=== PATIENT | female | born 1940 | race Caucasian/White ===

== ENCOUNTER 2016-12-14 08:58 | Inpatient (IN) | payer OTHER, BC ==
[2016-12-14] MEDS ORDERED: NITROGLYCERIN SUBLINGUAL 1/150 0.4 MG TAB SL PRN (09:05)
[2016-12-14] MEDS ORDERED: ASPIRIN 81 MG CHEWABLE TABLETS PO ONE (09:05)
[2016-12-14] MEDS ORDERED: METOPROLOL TARTRATE 25 MG TABLET (FP) PO ONE (09:07)
--- NOTE | 2016-12-14 09:08 | PDOC ---
History of Present Illness - General Chief Complaint: Chest Pain Stated Complaint: chest pain Time Seen by Provider: 12/14/16 09:02 - History of Present Illness Initial Comments: 12/14/16 09:38 76 yo female with complicated PMH of HTN, Hypothyroid, HLD, SLE, Anemia, Lower GI Bleed, Ischemic Collitis, GERD, CVA with Right Sided Residual Weakness, wearing a leg brace and using a cane who presents with chest pain and dyspnea that has been present since she woke up at 5am. Her chest pain radiates down her left arm. Her inital EKG in the department shows NSR, Rate of 71, LVH by voltage with normal intervals. There are no EKG changes to suggest ischemia or infarct. No old EKG was available for comparison. She was given aspirin, nitro and a beta-cheryle initially. This made her feel 100% better. Past History - Past Medical History Allergies/Adverse Reactions: Allergies Allergy/AdvReac Type Severity Reaction Status Date / Time ciprofloxacin [From Cipro] Allergy Unknown Verified 12/14/16 09:46 ciprofloxacin HCl Allergy Unknown Verified 12/14/16 09:46 [From Cipro] levofloxacin [From Levaquin] Allergy Unknown Verified 12/14/16 09:46 Quinolones Allergy Unknown Verified 12/14/16 09:46 Sulfa (Sulfonamide Allergy Unknown Verified 12/14/16 09:46 Antibiotics) [Sulfa(Sulfonamide Antibiotics)] Tetracyclines Allergy Unknown Verified 12/14/16 09:46 metronidazole AdvReac Difficulty Verified 12/14/16 09:46 Breathing PLASTICS Allergy Uncoded 12/14/16 09:46 Home Medications: Ambulatory Orders Aspirin [ASA -] 81 mg PO DAILY 12/14/16 Dantrolene Sodium [Dantrium -] 25 mg PO BID 12/14/16 Docusate Sodium [Stool Softener] 100 mg PO DAILY 12/14/16 Levothyroxine [Synthroid -] 75 mcg PO DAILY 12/14/16 Montelukast Na [Singulair -] 10 mg PO HS 12/14/16 Nifedipine [Nifedipine ER] 60 mg PO DAILY 12/14/16 Omeprazole 20 mg PO DAILY 12/14/16 Rosuvastatin Calcium [Crestor] 20 mg PO DAILY 12/14/16 Anemia: No 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 SPASTICITY.) HTN: Yes Thyroid Disease: Yes (HYPOTHYROID) - Surgical History Abdominal Surgery: Yes (SPLENECTOMY 1963) Appendectomy: Yes - Psycho/Social/Smoking Cessation Hx Anxiety: No Suicidal Ideation: No Smoking Status: No Smoking History: Never smoked Have you smoked in the past 12 months: No Number of Cigarettes Smoked Daily: 0 Hx Alcohol Use: No Substance Use Type: None ED Treatment Course - LABORATORY CBC & Chemistry Diagram: 12/14/16 09:19 12/14/16 09:19 *DC/Admit/Observation/Transfer Diagnosis at time of Disposition: Acute coronary syndrome - Discharge Dispostion Disposition: TRANSFER ACUTE CARE/OTHER HOSP Condition at time of disposition: Improved Admit: Yes
[2016-12-14] MEDS ORDERED: NITROGLYCERIN SUBLINGUAL 1/150 0.4 MG TAB ONE (09:14)
[2016-12-14] MEDS ORDERED: ASPIRIN 81 MG CHEWABLE TABLETS ONE (09:16)
[2016-12-14 09:41] LABS: INR 0.93 (0.82-1.09); PROTHROMBIN TIME (PATIENT) 10.4 SEC (10.2-13.0)
[2016-12-14 09:42] LABS: BASOPHIL 3.8 % (0-2.0); EOSINOPHIL 2.4 % (0-4.5); MCH 33.1 pg (25.7-33.7); MCHC 33.1 g/dl (32.0-36.0); MEAN PLT VOLUME 8.1 fl (7.5-11.1); NEUTROPHILS 36.9 % (42.8-82.8); PLATELET COUNT 375 K/MM3 (134-434); RDW 12.6 % (11.6-15.6); WHITE BLOOD COUNT 7.7 K/mm3 (4.0-10.8)
[2016-12-14 09:46] LABS: ALBUMIN 3.9 g/dl (3.5-5.0); ALK PHOS 51 U/L (32-92); ANION GAP 11 (8-16); BILIRUBIN,TOTAL 0.5 mg/dl (0.2-1.0); CALCIUM 9.7 mg/dl (8.4-10.2); CO2 25 mmol/L (22-28); CREATININE 0.7 mg/dl (0.6-1.3); GLUCOSE,RANDOM 115 mg/dl (74-106); MAGNESIUM 1.9 mg/dL (1.8-2.4); SGOT/AST 34 U/L (10-42); SGPT/ALT 26 U/L (10-40); TOT PROT 7.3 g/dl (6.4-8.3)
[2016-12-14] MEDS: SODIUM CHLORIDE 1,000 ML IV SCH (09:48)
[2016-12-14 09:58] LABS: CPK(DFH) 47 IU/L (26-140)
[2016-12-14 10:26] LABS: TROPONIN I (DFP) < 0.03 ng/ml (0.03-0.50)
[2016-12-14 11:34] LABS: URINE APPEARANCE Clear; URINE BILIRUBIN Negative (NEGATIVE); URINE BLOOD Negative (NEGATIVE); URINE GLUCOSE (UA) Negative (NEGATIVE); URINE KETONE Negative (NEGATIVE); URINE LEUK ESTERASE Negative (NEGATIVE); URINE NITRITE Negative (NEGATIVE); URINE PROTEIN Negative (NEGATIVE); URINE UROBILINOGEN 0.2 E.U/dl (0.2-1.0)
[2016-12-14 11:36] LABS: URINE COLOR YELLOW
--- NOTE | 2016-12-14 17:30 | HP ---
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 This occured at rest, and did not have any previous such episodes. Her chest pain radiates Lt shoulder. her dorove her to [facility] where she still had the CP upon arrival. She was given SL NTCG with near total resolution. 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 Cardiovascular: Yes: HTN, Hyperlipdemia Gastrointestinal: Yes: GERD, Hiatal Hernia Hepatobiliary: Yes: Other (gallstones) ...: No Psych: Yes: Anxiety Musculoskeletal: Yes: Hemiplegia, Osteoarthritis Rheumatology: Yes: Lupus ENT: Yes: Sinusitis Endocrine: Yes: Hypothyroidism Dermatology: Yes: Basal Cell - Past Surgical History Past Surgical History: Yes: Hysterectomy, Joint Replacement (bilateral knees), Splenectomy Additional Past Surgical History: laparascopic abd surgery - Smoking History Smoking history: Never smoked Have you smoked in the past 12 months: No Aproximately how many cigarettes per day: 0 - Alcohol/Substance Use Hx Alcohol Use: No History of Substance Use: reports: None - Social History ADL: Family Assistance 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 History of Recent Travel: No Home Medications - Allergies Allergies/Adverse Reactions: Allergies Allergy/AdvReac Type Severity Reaction Status Date / Time ciprofloxacin [From Cipro] Allergy Unknown Verified 12/14/16 09:46 ciprofloxacin HCl Allergy Unknown Verified 12/14/16 09:46 [From Cipro] levofloxacin [From Levaquin] Allergy Unknown Verified 12/14/16 09:46 Quinolones Allergy Unknown Verified 12/14/16 09:46 Sulfa (Sulfonamide Allergy Unknown Verified 12/14/16 09:46 Antibiotics) [Sulfa(Sulfonamide Antibiotics)] Tetracyclines Allergy Unknown Verified 12/14/16 09:46 metronidazole AdvReac Difficulty Verified 12/14/16 09:46 Breathing PLASTICS Allergy Uncoded 12/14/16 09:46 - Home Medications Home Medications: Ambulatory Orders Aspirin [ASA -] 81 mg PO DAILY 12/14/16 Dantrolene Sodium [Dantrium -] 25 mg PO BID 12/14/16 Docusate Sodium [Stool Softener] 100 mg PO DAILY 12/14/16 Levothyroxine [Synthroid -] 75 mcg PO DAILY 12/14/16 Montelukast Na [Singulair -] 10 mg PO HS 12/14/16 Nifedipine [Nifedipine ER] 60 mg PO DAILY 12/14/16 Omeprazole 20 mg PO DAILY 12/14/16 Rosuvastatin Calcium [Crestor] 20 mg PO HS 12/14/16 Family Disease History - Family Disease History Family History: Unremarkable Review of Systems - Review of Systems Constitutional: reports: No Symptoms Eyes: reports: No Symptoms HENT: reports: No Symptoms Neck: reports: No Symptoms Cardiovascular: reports: Chest Pain Respiratory: reports: SOB Gastrointestinal: reports: No Symptoms Genitourinary: reports: Frequency Breasts: reports: No Symptoms Reported Musculoskeletal: reports: Other (spasms on hemiplegic (rt side)) Integumentary: reports: No Symptoms Neurological: reports: No Symptoms Endocrine: reports: No Symptoms Hematology/Lymphatic: reports: No Symptoms Psychiatric: reports: Anxiety Physical Examination Vital Signs: Vital Signs Temperature 98 F 12/14/16 08:58 Pulse Rate 72 12/14/16 15:43 Respiratory Rate 16 12/14/16 15:43 Blood Pressure 129/52 12/14/16 15:43 O2 Sat by Pulse Oximetry (%) 100 12/14/16 15:43 Constitutional: Yes: Well Nourished, No Distress Eyes: Yes: WNL, Conjunctiva Clear HENT: Yes: WNL Neck: Yes: WNL Cardiovascular: Yes: Regular Rate and Rhythm Respiratory: Yes: Regular Gastrointestinal: Yes: Soft ...Rectal Exam: Yes: Deferred Renal/: Yes: WNL Musculoskeletal: Yes: Joint Stiffness (Rt side) Edema: No Peripheral Pulses WNL: Yes Integumentary: Yes: WNL Neurological: Yes: Other (Rt hemiplegia with increased tone) Psychiatric: Yes: Alert, Oriented Labs: CBCD WBC 7.7 K/mm3 (4.0-10.8) 12/14/16 09:19 RBC 3.95 M/mm3 (3.60-5.2) 12/14/16 09:19 Hgb 13.1 GM/dl (10.7-15.3) D 12/14/16 09:19 Hct 39.5 % (32.4-45.2) D 12/14/16 09:19 MCV 100.0 fl (80-96) H 12/14/16 09:19 MCHC 33.1 g/dl (32.0-36.0) 12/14/16 09:19 RDW 12.6 % (11.6-15.6) 12/14/16 09:19 Plt Count 375 K/MM3 (134-434) D 12/14/16 09:19 MPV 8.1 fl (7.5-11.1) 12/14/16 09:19 CMP Sodium 140 mmol/L (136-145) 12/14/16 09:19 Potassium 3.7 mmol/L (3.5-5.1) D 12/14/16 09:19 Chloride 104 mmol/L (98-107) 12/14/16 09:19 Carbon Dioxide 25 mmol/L (22-28) 12/14/16 09:19 Anion Gap 11 (8-16) 12/14/16 09:19 BUN 18 mg/dl (7-18) 12/14/16 09:19 Creatinine 0.7 mg/dl (0.6-1.3) 12/14/16 09:19 Creat Clearance w eGFR > 60 (>60) 12/14/16 09:19 Random Glucose 115 mg/dl (74-106) H 12/14/16 09:19 Calcium 9.7 mg/dl (8.4-10.2) 12/14/16 09:19 Total Bilirubin 0.5 mg/dl (0.2-1.0) 12/14/16 09:19 AST 34 U/L (10-42) 12/14/16 09:19 ALT 26 U/L (10-40) 12/14/16 09:19 Alkaline Phosphatase 51 U/L (32-92) 12/14/16 09:19 Total Protein 7.3 g/dl (6.4-8.3) 12/14/16 09:19 Albumin 3.9 g/dl (3.5-5.0) 12/14/16 09:19 CARDIAC ENZYMES Creatine Kinase 47 IU/L (26-140) 12/14/16 09:49 Troponin I < 0.03 ng/ml (0.03-0.50) L 12/14/16 09:49 INR, PTT INR 0.93 (0.82-1.09) L 12/14/16 09:19 Urine Test Results Urine Color Yellow 12/14/16 11:20 Urine Appearance Clear 12/14/16 11:20 Urine pH 6.0 (4.5-8) 12/14/16 11:20 Ur Specific [place] <= 1.005 (1.005-1.025) 12/14/16 11:20 Urine Protein Negative (NEGATIVE) 12/14/16 11:20 Urine Glucose (UA) Negative (NEGATIVE) 12/14/16 11:20 Urine Ketones Negative (NEGATIVE) 12/14/16 11:20 Urine Blood Negative (NEGATIVE) 12/14/16 11:20 Urine Nitrite Negative (NEGATIVE) 12/14/16 11:20 Urine Bilirubin Negative (NEGATIVE) 12/14/16 11:20 Ur Leukocyte Esterase Negative (NEGATIVE) 12/14/16 11:20 Imaging - Results X-ray: Report Reviewed EKG: Report Reviewed Problem List - Problems (1) Chest pain due to myocardial ischemia Assessment/Plan: abrupt onset of SSCP rad to LUE; with Dypnea. Relived by SL NTG in a Pt with Htn , lipidemia; strongly suggest CAD Plan::: Cardio consult; Tele monitoring, BB, ASA, Oxygen. Code(s): I20.9 - ANGINA PECTORIS, UNSPECIFIED Qualifiers: Ischemic chest pain type: unstable angina pectoris Qualified Code(s) : I20.0 - Unstable angina (2) Hypertension Assessment/Plan: controlled with CCB and ARB Code(s): I10 - ESSENTIAL (PRIMARY) HYPERTENSION Qualifiers: Hypertension type: essential hypertension Qualified Code(s): I10 - Essential (primary) hypertension (3) Lipidemia Assessment/Plan: Had recent adjustment of her statin about 2 months ago from 10 to 20 of Crestor ; will check levels Code(s): E78.5 - HYPERLIPIDEMIA, UNSPECIFIED Qualifiers: Hyperlipidemia type: unspecified Qualified Code(s): E78.5 - Hyperlipidemia, unspecified (4) History of CVA with residual deficit Assessment/Plan: Rt HP; is able to ambulate with assistive devices Code(s): I69.30 - UNSPECIFIED SEQUELAE OF CEREBRAL INFARCTION (5) Hypothyroid Assessment/Plan: clinically euthryoid; check TFT Code(s): E03.9 - HYPOTHYROIDISM, UNSPECIFIED Qualifiers: Hypothyroidism type: acquired Qualified Code(s): E03.9 - Hypothyroidism , unspecified (6) History of systemic lupus erythematosus (SLE) Assessment/Plan: does not have active disease; appears to have self-resolved many yrs ago Code(s): Z87.39 - PERSONAL HISTORY OF DISEASES OF THE MS SYS AND CONN TISS (7) Muscle spasm Assessment/Plan: chronic; of Rt plegic extremities uses Dantrolene and Prn Valium Code(s): M62.838 - OTHER MUSCLE SPASM (8) GERD without esophagitis Assessment/Plan: Has been controlled with PPI; will switch to h2 cheryle Code(s): K21.9 - GASTRO-ESOPHAGEAL REFLUX DISEASE WITHOUT ESOPHAGITIS Assessment/Plan 76 y/o handicapped F with Hx of Htn; HLD, who present with new onset CP, relieved by NTG, gives strong suspicion to CAD. ~~~~~~~~~~~~~~~~~~~~ Dr Chan......1 Hr
[2016-12-14] MEDS ORDERED: NITROGLYCERIN 2% OINTMENT - 1GM PACKET TD ONE (17:52)
[2016-12-14] MEDS: DOCUSATE SODIUM 100 MG CAPSULE (FP) PO SCH (18:17)
[2016-12-14 18:40] VITALS: BMI 36.6
[2016-12-14 20:03] LABS: TROPONIN I < 0.02 ng/ml (0.00-0.05)
[2016-12-14] MEDS ORDERED: PT OWN MED DRAWER 7, Y5N ONE (21:59)
[2016-12-14] MEDS: ROSUVASTATIN CA 20 MG TABLET (FP) PO SCH (22:06)
[2016-12-14] MEDS: RANITIDINE HCL 150 MG TABLET (FP) PO SCH (22:06)
[2016-12-14] MEDS: DANTROLENE SODIUM 25 MG CAPSULE PO SCH (22:06)
[2016-12-14] MEDS: HEPARIN NA (PORCINE) 5,000 UNITS/ML 1ML VIAL SQ SCH (22:06)
[2016-12-14] MEDS: VALSARTAN 80 MG TABLET (UD) PO SCH (22:06)
[2016-12-15] MEDS: LORazepam 0.5 MG TABLET PO PRN (04:48)
[2016-12-15] MEDS: LEVOTHYROXINE NA 75 MCG TABLET (FP) PO SCH (06:16)
[2016-12-15 08:47] LABS: CALCIUM 8.8 mg/dL (8.5-10.1)
[2016-12-15 10:03] LABS: COCKROFT - GAULT 72.5135; CREATININE 0.6 mg/dL (0.55-1.02); THYROID STIMULATING HORMONE 1.4 uIU/ml (0.358-3.74)
[2016-12-15] MEDS: VALSARTAN 80 MG TABLET (UD) PO SCH ×2 (11:25→21:42)
[2016-12-15] MEDS: HEPARIN NA (PORCINE) 5,000 UNITS/ML 1ML VIAL SQ SCH ×2 (11:25→21:42)
[2016-12-15] MEDS: DOCUSATE SODIUM 100 MG CAPSULE (FP) PO SCH (11:25)
[2016-12-15] MEDS: METOPROLOL SUCCINATE 25 MG TAB.SR.24H (FP) PO SCH (11:25)
[2016-12-15] MEDS: RANITIDINE HCL 150 MG TABLET (FP) PO SCH ×2 (11:25→21:42)
[2016-12-15] MEDS: ASPIRIN 325 MG ENTERIC COATED TABLET (FP) PO SCH (11:25)
[2016-12-15] MEDS ORDERED: PT OWN MED DRAWER 7, Y5N ONE ×2 (11:27→16:12)
[2016-12-15] MEDS: DANTROLENE SODIUM 25 MG CAPSULE PO SCH ×2 (11:30→21:42)
[2016-12-15] MEDS: SODIUM CHLORIDE 1,000 ML IV SCH (11:31)
--- NOTE | 2016-12-15 13:17 | CON.CARD ---
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 constant until she received NTG. Subsequent recurrence again with resolution after NTG. Now on ntg patch. no further recurrence. assoc with dyspnea. worse with inspiration. No prior similar episodes. No preceding viral infection, f/c/s, cough, congestion exercises at gym 2x/week (10 min on bike, 15 min on recumbant stair stepper) -- > without limitations. Last exercised 1 week ago. no orthopnea, pnd, le edema, palps, dizziness, bleeding, transient neurologic sx 's. pmhx/pshx: gallstones, Sinusitis, Basal Cell, Hysterectomy, Joint Replacement ( bilateral knees), Splenectomy, laparascopic abd surgery soc hx: Never smoked fam hx: no cardiac history ros: per hpi, additionally no n/v/d, rashes, h/a, visual disturbances. - Allergies Allergies/Adverse Reactions: Allergies Allergy/AdvReac Type Severity Reaction Status Date / Time ciprofloxacin [From Cipro] Allergy Unknown Verified 12/14/16 09:46 ciprofloxacin HCl Allergy Unknown Verified 12/14/16 09:46 [From Cipro] levofloxacin [From Levaquin] Allergy Unknown Verified 12/14/16 09:46 Quinolones Allergy Unknown Verified 12/14/16 09:46 Sulfa (Sulfonamide Allergy Unknown Verified 12/14/16 09:46 Antibiotics) [Sulfa(Sulfonamide Antibiotics)] Tetracyclines Allergy Unknown Verified 12/14/16 09:46 metronidazole AdvReac Difficulty Verified 12/14/16 09:46 Breathing PLASTICS Allergy Uncoded 12/14/16 09:46 Ambulatory Orders Aspirin [ASA -] 81 mg PO DAILY 12/14/16 Dantrolene Sodium [Dantrium -] 25 mg PO BID 12/14/16 Docusate Sodium [Stool Softener] 100 mg PO DAILY 12/14/16 Levothyroxine [Synthroid -] 75 mcg PO DAILY 12/14/16 Montelukast Na [Singulair -] 10 mg PO HS 12/14/16 Nifedipine [Nifedipine ER] 60 mg PO DAILY 12/14/16 Omeprazole 20 mg PO DAILY 12/14/16 Rosuvastatin Calcium [Crestor] 20 mg PO HS 12/14/16 Current Medications Aspirin (Ecotrin -) 325 mg PO DAILY ON LICENSE OF [facility] Last Admin: 12/15/16 11:25 Dose: 325 mg Dantrolene Sodium (Dantrium -) 25 mg PO BID ON LICENSE OF [facility] Last Admin: 12/15/16 11:30 Dose: 25 mg Docusate Sodium (Colace -) 100 mg PO DAILY ON LICENSE OF [facility] Last Admin: 12/15/16 11:25 Dose: 100 mg Heparin Sodium (Porcine) (Heparin -) 5,000 unit SQ BID ON LICENSE OF [facility] Last Admin: 12/15/16 11:25 Dose: 5,000 unit Sodium Chloride (Normal Saline -) 1,000 mls @ 125 mls/hr IV ASDIR ON LICENSE OF [facility] Last Admin: 12/15/16 11:31 Dose: Not Given Levothyroxine Sodium (Synthroid -) 75 mcg PO DAILY@0700 ON LICENSE OF [facility] Last Admin: 12/15/16 06:16 Dose: 75 mcg Lorazepam (Ativan -) 0.5 mg PO DAILY PRN PRN Reason: ANXIETY Last Admin: 12/15/16 04:48 Dose: 0.5 mg Metoprolol Succinate (Toprol Xl -) 25 mg PO DAILY ON LICENSE OF [facility] Last Admin: 12/15/16 11:25 Dose: 25 mg Nitroglycerin (Nitrostat -) 0.4 mg SL Q5M PRN PRN Reason: FOR CHEST PAIN Last Admin: 12/14/16 09:15 Dose: 0.4 mg Ranitidine HCl (Zantac -) 150 mg PO BID ON LICENSE OF [facility] Last Admin: 12/15/16 11:25 Dose: 150 mg Rosuvastatin Calcium (Crestor -) 20 mg PO HS ON LICENSE OF [facility] Last Admin: 12/14/16 22:06 Dose: 20 mg Valsartan (Diovan -) 80 mg PO BID ON LICENSE OF [facility] Last Admin: 12/15/16 11:25 Dose: 80 mg Vital Signs - 24 hr 12/14/16 12/14/16 12/14/16 13:29 15:43 18:34 Temperature 98.8 F Pulse Rate 67 Pulse Rate [ 73 72 Apical] Respiratory 18 16 22 Rate Blood Pressure 124/76 Blood Pressure 143/49 129/52 [Right Arm] O2 Sat by Pulse 97 100 Oximetry (%) 12/14/16 12/14/16 12/15/16 18:44 21:00 01:55 Temperature 98.9 F Pulse Rate 70 Pulse Rate [ Apical] Respiratory 20 Rate Blood Pressure 123/65 Blood Pressure [Right Arm] O2 Sat by Pulse 97 97 Oximetry (%) 12/15/16 05:55 Temperature 98.6 F Pulse Rate 70 Pulse Rate [ Apical] Respiratory 22 Rate Blood Pressure 140/74 Blood Pressure [Right Arm] O2 Sat by Pulse Oximetry (%) Intake & Output 12/13/16 12/14/16 12/15/16 12/16/16 07:59 07:59 07:59 07:59 Intake Total 20 Balance 20 Weight 125 lb nad, calm jvd flat, neck supple ctab, nl effort rrr nl s1, s2 no mrg + bs soft nt nd ext without e/c/c aaox3 no carotid bruits no jaundice, diaphoresis. CBC, BMP 12/14/16 09:19 12/15/16 05:43 Laboratory Tests 12/14/16 12/14/16 12/14/16 09:19 09:19 09:20 INR 0.93 L Hemoglobin A1c % Total Bilirubin 0.5 AST 34 ALT 26 Alkaline Phosphatase 51 Creatine Kinase Troponin I B-Natriuretic Peptide 88.66 Triglycerides Cholesterol Total LDL Cholesterol HDL Cholesterol TSH 12/14/16 12/14/16 12/15/16 09:49 18:48 05:43 INR Hemoglobin A1c % Total Bilirubin AST ALT Alkaline Phosphatase Creatine Kinase 47 43 Troponin I < 0.03 L < 0.02 B-Natriuretic Peptide Triglycerides 104 Cholesterol 153 Total LDL Cholesterol 87 HDL Cholesterol 55 TSH 1.40 12/15/16 05:43 INR Hemoglobin A1c % 5.7 Total Bilirubin AST ALT Alkaline Phosphatase Creatine Kinase Troponin I B-Natriuretic Peptide Triglycerides Cholesterol Total LDL Cholesterol HDL Cholesterol TSH EKG: wnl tele: SR CXR: wnl 76 yo with h/o HTN, Hypothyroid, HLD, past hx of SLE (now resolved), Hx Ischemic Collitis, GERD, hiatal hernia, hypothyroid, anxiety, 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 Needs further CAD work up with stress testing. Currently CP free. CE's neg x 2 and EKG without ischemic changes. - NTG PRN to keep cp free. On home nifedipine, given metoprolol here. - con't medical management with ASA, statin - echo - pt with h/o lupus and pleuritic component to pain. Would get ESR, CRP as pericarditis remains on the differential. HTN - currently controlled on metoprolol, patient still has NTG patch on from ER. HL - con't statin. CVA - asa, statin. no new deficits.
--- NOTE | 2016-12-15 14:31 | PN ---
Progress Note (short form) - Note Progress Note: Current Medications Aspirin (Ecotrin -) 325 mg PO DAILY [facility] Last Admin: 12/15/16 11:25 Dose: 325 mg Dantrolene Sodium (Dantrium -) 25 mg PO BID [facility] Last Admin: 12/15/16 11:30 Dose: 25 mg Docusate Sodium (Colace -) 100 mg PO DAILY [facility] Last Admin: 12/15/16 11:25 Dose: 100 mg Heparin Sodium (Porcine) (Heparin -) 5,000 unit SQ BID [facility] Last Admin: 12/15/16 11:25 Dose: 5,000 unit Sodium Chloride (Normal Saline -) 1,000 mls @ 125 mls/hr IV ASDIR [facility] Last Admin: 12/15/16 11:31 Dose: Not Given Levothyroxine Sodium (Synthroid -) 75 mcg PO DAILY@0700 [facility] Last Admin: 12/15/16 06:16 Dose: 75 mcg Lorazepam (Ativan -) 0.5 mg PO DAILY PRN PRN Reason: ANXIETY Last Admin: 12/15/16 04:48 Dose: 0.5 mg Metoprolol Succinate (Toprol Xl -) 25 mg PO DAILY [facility] Last Admin: 12/15/16 11:25 Dose: 25 mg Nitroglycerin (Nitrostat -) 0.4 mg SL Q5M PRN PRN Reason: FOR CHEST PAIN Last Admin: 12/14/16 09:15 Dose: 0.4 mg Ranitidine HCl (Zantac -) 150 mg PO BID [facility] Last Admin: 12/15/16 11:25 Dose: 150 mg Rosuvastatin Calcium (Crestor -) 20 mg PO HS [facility] Last Admin: 12/14/16 22:06 Dose: 20 mg Valsartan (Diovan -) 80 mg PO BID [facility] Last Admin: 12/15/16 11:25 Dose: 80 mg Laboratory Results - last 24 hr 12/14/16 12/15/16 12/15/16 18:48 05:43 05:43 Sodium 142 Potassium 3.8 Chloride 107 Carbon Dioxide 27 Anion Gap 8 BUN 19 H D Creatinine 0.6 D Random Glucose 93 Hemoglobin A1c % 5.7 Calcium 8.8 Creatine Kinase 43 Troponin I < 0.02 Triglycerides 104 Cholesterol 153 Total LDL Cholesterol 87 HDL Cholesterol 55 TSH 1.40 Vital Signs Temperature 98.6 F 12/15/16 05:55 Pulse Rate 70 05/27/17 05:55 Respiratory Rate 22 12/15/16 05:55 Blood Pressure 140/74 12/15/16 05:55 O2 Sat by Pulse Oximetry (%) 97 12/14/16 21:00 CC: chest pressure at rest this AM (now resolved w/ SL NTG) `````````````````````````` skin--good color eyes--midline heart--RR chst--no rao tenderness abd--benign neuro--Rt HP; alert, coherent ````````````````````````````` Summ > Unstable angina--complaint stringly suggestive of this; got another short episode of CP this AM; TNI, x 3 okay, EKG essentially okay; PLAN: await Cardio eval > Htn--BP in acceptable range > Lipidemia--levels in good range > Hyothyroidism--controlled. ~~~~~~~~~~~~~~~~~~~~~~ Dr Zhang Problem List - Problems (1) Chest pain due to myocardial ischemia Code(s): I20.9 - ANGINA PECTORIS, UNSPECIFIED Qualifiers: Ischemic chest pain type: unstable angina pectoris Qualified Code(s) : I20.0 - Unstable angina (2) Hypertension Code(s): I10 - ESSENTIAL (PRIMARY) HYPERTENSION Qualifiers: Hypertension type: essential hypertension Qualified Code(s): I10 - Essential (primary) hypertension (3) Lipidemia Code(s): E78.5 - HYPERLIPIDEMIA, UNSPECIFIED Qualifiers: Hyperlipidemia type: unspecified Qualified Code(s): E78.5 - Hyperlipidemia, unspecified (4) History of CVA with residual deficit Code(s): I69.30 - UNSPECIFIED SEQUELAE OF CEREBRAL INFARCTION (5) Hypothyroid Code(s): E03.9 - HYPOTHYROIDISM, UNSPECIFIED Qualifiers: Hypothyroidism type: acquired Qualified Code(s): E03.9 - Hypothyroidism , unspecified (6) History of systemic lupus erythematosus (SLE) Code(s): Z87.39 - PERSONAL HISTORY OF DISEASES OF THE MS SYS AND CONN TISS (7) Muscle spasm Code(s): M62.838 - OTHER MUSCLE SPASM (8) GERD without esophagitis Code(s): K21.9 - GASTRO-ESOPHAGEAL REFLUX DISEASE WITHOUT ESOPHAGITIS
[2016-12-15] MEDS ORDERED: DANTROLENE SODIUM 25 MG CAPSULE PO ONE (14:38)
--- NOTE | 2016-12-15 15:47 | EKG ---
Test Reason : Blood Pressure : / mmHG Vent. Rate : 071 BPM Atrial Rate : 071 BPM P-R Int : 156 ms QRS Dur : 078 ms QT Int : 420 ms P-R-T Axes : 047 -04 041 degrees QTc Int : 456 ms POOR DATA QUALITY, INTERPRETATION MAY BE ADVERSELY AFFECTED NORMAL SINUS RHYTHM MINIMAL VOLTAGE CRITERIA FOR LVH, MAY BE NORMAL VARIANT POSSIBLE SEPTAL INFARCT , AGE UNDETERMINED ABNORMAL ECG WHEN COMPARED WITH ECG OF 25-OCT-2004 09:42, NO SIGNIFICANT CHANGE WAS FOUND Confirmed by KAREN BARRETT MD ([id number]) on 12/15/2016 3:47:30 PM Referred By: MD VALDEZ Confirmed By:KAREN BARRETT MD
--- NOTE | 2016-12-15 15:49 | EKG ---
Test Reason : Blood Pressure : / mmHG Vent. Rate : 067 BPM Atrial Rate : 067 BPM P-R Int : 156 ms QRS Dur : 080 ms QT Int : 416 ms P-R-T Axes : 036 004 039 degrees QTc Int : 439 ms POOR DATA QUALITY, INTERPRETATION MAY BE ADVERSELY AFFECTED NORMAL SINUS RHYTHM NORMAL ECG WHEN COMPARED WITH ECG OF 14-DEC-2016 09:04, NO SIGNIFICANT CHANGE WAS FOUND Confirmed by NENA PRECIADO, KAREN ([id number]) on 12/15/2016 3:48:58 PM Referred By: Confirmed By:KAREN BARRETT MD
[2016-12-15] MEDS ORDERED: CEFTRIAXONE 100 ML IVPB ONE (16:12)
[2016-12-15] MEDS: ROSUVASTATIN CA 20 MG TABLET (FP) PO SCH (21:42)
[2016-12-16] MEDS: LORazepam 0.5 MG TABLET PO PRN (02:48)
[2016-12-16] MEDS: LEVOTHYROXINE NA 75 MCG TABLET (FP) PO SCH (07:10)
[2016-12-16] MEDS: DANTROLENE SODIUM 25 MG CAPSULE PO SCH ×3 (07:11→22:03)
[2016-12-16 08:23] LABS: TROPONIN I < 0.02 ng/ml (0.00-0.05)
[2016-12-16] MEDS: HEPARIN NA (PORCINE) 5,000 UNITS/ML 1ML VIAL SQ SCH ×2 (12:02→22:04)
[2016-12-16] MEDS: VALSARTAN 80 MG TABLET (UD) PO SCH ×2 (12:02→22:03)
[2016-12-16] MEDS: METOPROLOL SUCCINATE 25 MG TAB.SR.24H (FP) PO SCH (12:02)
[2016-12-16] MEDS: ASPIRIN 325 MG ENTERIC COATED TABLET (FP) PO SCH (12:02)
[2016-12-16] MEDS: DOCUSATE SODIUM 100 MG CAPSULE (FP) PO SCH (12:02)
[2016-12-16] MEDS: RANITIDINE HCL 150 MG TABLET (FP) PO SCH ×2 (12:02→22:03)
--- NOTE | 2016-12-16 13:04 | PN ---
Progress Note (short form) - Note Progress Note: Current Medications Aspirin (Ecotrin -) 325 mg PO DAILY [facility] Last Admin: 12/16/16 12:02 Dose: 325 mg Dantrolene Sodium (Dantrium -) 25 mg PO TID [facility] Last Admin: 12/16/16 07:11 Dose: 25 mg Docusate Sodium (Colace -) 100 mg PO DAILY [facility] Last Admin: 12/16/16 12:02 Dose: 100 mg Heparin Sodium (Porcine) (Heparin -) 5,000 unit SQ BID [facility] Last Admin: 12/16/16 12:02 Dose: 5,000 unit Levothyroxine Sodium (Synthroid -) 75 mcg PO DAILY@0700 [facility] Last Admin: 12/16/16 07:10 Dose: 75 mcg Lorazepam (Ativan -) 0.5 mg PO DAILY PRN PRN Reason: ANXIETY Last Admin: 12/16/16 02:48 Dose: 0.5 mg Metoprolol Succinate (Toprol Xl -) 25 mg PO DAILY [facility] Last Admin: 12/16/16 12:02 Dose: 25 mg Nitroglycerin (Nitrostat -) 0.4 mg SL Q5M PRN PRN Reason: FOR CHEST PAIN Last Admin: 12/14/16 09:15 Dose: 0.4 mg Ranitidine HCl (Zantac -) 150 mg PO BID [facility] Last Admin: 12/16/16 12:02 Dose: 150 mg Rosuvastatin Calcium (Crestor -) 20 mg PO HS [facility] Last Admin: 12/15/16 21:42 Dose: 20 mg Valsartan (Diovan -) 80 mg PO BID [facility] Last Admin: 12/16/16 12:02 Dose: 80 mg Laboratory Results - last 24 hr 12/16/16 12/16/16 12/16/16 05:40 05:40 05:40 ESR 38 H Creatine Kinase 62 Troponin I < 0.02 C-Reactive Protein < 0.3 Vital Signs Temperature 99.6 F 12/16/16 06:00 Pulse Rate 63 12/16/16 06:00 Respiratory Rate 20 12/16/16 06:00 Blood Pressure 126/53 12/16/16 06:00 O2 Sat by Pulse Oximetry (%) 99 12/15/16 21:00 CC: no CP today `````````````````````````` skin--good color eyes--midline heart--RR neuro--Rt HP; alert, coherent ````````````````````````````` Summ > Unstable angina--complaint strongly suggestive of CAD; got another short episode of CP this AM; TNI, x 3 okay, EKG essentially okay; PLAN: await Cardio eval > Htn--BP in acceptable range > Lipidemia--levels in good range > Hyothyroidism--controlled. ~~~~~~~~~~~~~~~~~~~~~~ Dr Zhang Problem List - Problems (1) Chest pain due to myocardial ischemia Code(s): I20.9 - ANGINA PECTORIS, UNSPECIFIED Qualifiers: Ischemic chest pain type: unstable angina pectoris Qualified Code(s) : I20.0 - Unstable angina (2) Hypertension Code(s): I10 - ESSENTIAL (PRIMARY) HYPERTENSION Qualifiers: Hypertension type: essential hypertension Qualified Code(s): I10 - Essential (primary) hypertension (3) Lipidemia Code(s): E78.5 - HYPERLIPIDEMIA, UNSPECIFIED Qualifiers: Hyperlipidemia type: unspecified Qualified Code(s): E78.5 - Hyperlipidemia, unspecified (4) History of CVA with residual deficit Code(s): I69.30 - UNSPECIFIED SEQUELAE OF CEREBRAL INFARCTION (5) Hypothyroid Code(s): E03.9 - HYPOTHYROIDISM, UNSPECIFIED Qualifiers: Hypothyroidism type: acquired Qualified Code(s): E03.9 - Hypothyroidism , unspecified (6) History of systemic lupus erythematosus (SLE) Code(s): Z87.39 - PERSONAL HISTORY OF DISEASES OF THE MS SYS AND CONN TISS (7) Muscle spasm Code(s): M62.838 - OTHER MUSCLE SPASM (8) GERD without esophagitis Code(s): K21.9 - GASTRO-ESOPHAGEAL REFLUX DISEASE WITHOUT ESOPHAGITIS
--- NOTE | 2016-12-16 14:51 | PN ---
Progress Note (short form) - Note Progress Note: CC: CP S: no further episodes of cp. no sob, palps, dizziness. Current Medications Aspirin (Ecotrin -) 325 mg PO DAILY [facility] Last Admin: 12/16/16 12:02 Dose: 325 mg Dantrolene Sodium (Dantrium -) 25 mg PO TID [facility] Last Admin: 12/16/16 07:11 Dose: 25 mg Docusate Sodium (Colace -) 100 mg PO DAILY [facility] Last Admin: 12/16/16 12:02 Dose: 100 mg Heparin Sodium (Porcine) (Heparin -) 5,000 unit SQ BID [facility] Last Admin: 12/16/16 12:02 Dose: 5,000 unit Levothyroxine Sodium (Synthroid -) 75 mcg PO DAILY@0700 [facility] Last Admin: 12/16/16 07:10 Dose: 75 mcg Lorazepam (Ativan -) 0.5 mg PO DAILY PRN PRN Reason: ANXIETY Last Admin: 12/16/16 02:48 Dose: 0.5 mg Metoprolol Succinate (Toprol Xl -) 25 mg PO DAILY [facility] Last Admin: 12/16/16 12:02 Dose: 25 mg Nitroglycerin (Nitrostat -) 0.4 mg SL Q5M PRN PRN Reason: FOR CHEST PAIN Last Admin: 12/14/16 09:15 Dose: 0.4 mg Ranitidine HCl (Zantac -) 150 mg PO BID [facility] Last Admin: 12/16/16 12:02 Dose: 150 mg Rosuvastatin Calcium (Crestor -) 20 mg PO HS [facility] Last Admin: 12/15/16 21:42 Dose: 20 mg Valsartan (Diovan -) 80 mg PO BID [facility] Last Admin: 12/16/16 12:02 Dose: 80 mg Vital Signs - 24 hr 12/15/16 12/15/16 12/16/16 17:00 21:00 02:00 Temperature 98.0 F 97.9 F 98.7 F Pulse Rate 62 59 L 60 Respiratory 18 18 20 Rate Blood Pressure 119/56 110/44 131/67 O2 Sat by Pulse 99 Oximetry (%) 12/16/16 06:00 Temperature 99.6 F Pulse Rate 63 Respiratory 20 Rate Blood Pressure 126/53 O2 Sat by Pulse Oximetry (%) Intake & Output 12/14/16 12/15/16 12/16/16 0529/17 07:59 07:59 07:59 07:59 Intake Total 20 500 Balance 20 500 Weight 125 lb nad, calm jvd flat, neck supple ctab, nl effort rrr nl s1, s2 no mrg + bs soft nt nd ext without e/c/c aaox3 no carotid bruits no jaundice, diaphoresis. 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 Needs further CAD work up with stress testing. Currently CP free. CE's neg x 2 and EKG without ischemic changes. - NTG PRN to keep cp free. On home nifedipine, given metoprolol here. - con't medical management with ASA, statin. valsartan started here. - echo - pt with h/o lupus and pleuritic component to pain. ESR elevated, but not crp. no other clinical finding c/w pericarditis --> low suspicion. HTN - currently controlled on metoprolol and valsartan, HL - con't statin. CVA - asa, statin. no new deficits.
[2016-12-16] MEDS: ROSUVASTATIN CA 20 MG TABLET (FP) PO SCH (22:02)
[2016-12-17] MEDS: LEVOTHYROXINE NA 75 MCG TABLET (FP) PO SCH (06:14)
[2016-12-17] MEDS: DANTROLENE SODIUM 25 MG CAPSULE PO SCH ×3 (06:14→22:55)
[2016-12-17 08:36] LABS: ANION GAP 10 (8-16); CALCIUM 9.1 mg/dL (8.5-10.1); CO2 28 mmol/L (21-32); COCKROFT - GAULT 72.5135; CREATININE 0.6 mg/dL (0.55-1.02); GLUCOSE,RANDOM 103 mg/dL (74-106)
[2016-12-17 08:41] LABS: TROPONIN I < 0.02 ng/ml (0.00-0.05)
--- NOTE | 2016-12-17 09:16 | EKG ---
Test Reason : Blood Pressure : / mmHG Vent. Rate : 059 BPM Atrial Rate : 059 BPM P-R Int : 154 ms QRS Dur : 086 ms QT Int : 424 ms P-R-T Axes : 049 007 051 degrees QTc Int : 419 ms SINUS BRADYCARDIA OTHERWISE NORMAL ECG WHEN COMPARED WITH ECG OF 15-DEC-2016 04:48, NO SIGNIFICANT CHANGE WAS FOUND Confirmed by KAREN BARRETT MD ([id number]) on 12/17/2016 9:15:53 AM Referred By: Lenora BRICE Confirmed By:KAREN BARRETT MD
[2016-12-17] MEDS: RANITIDINE HCL 150 MG TABLET (FP) PO SCH ×2 (09:30→22:55)
[2016-12-17] MEDS: METOPROLOL SUCCINATE 25 MG TAB.SR.24H (FP) PO SCH (09:31)
[2016-12-17] MEDS: HEPARIN NA (PORCINE) 5,000 UNITS/ML 1ML VIAL SQ SCH ×2 (09:31→22:55)
[2016-12-17] MEDS: VALSARTAN 80 MG TABLET (UD) PO SCH ×2 (09:31→22:55)
[2016-12-17] MEDS: ASPIRIN 325 MG ENTERIC COATED TABLET (FP) PO SCH (09:31)
[2016-12-17] MEDS: DOCUSATE SODIUM 100 MG CAPSULE (FP) PO SCH (09:31)
--- NOTE | 2016-12-17 13:09 | PN ---
Progress Note (short form) - Note Progress Note: Current Medications Aspirin (Ecotrin -) 325 mg PO DAILY [facility] Last Admin: 12/17/16 09:31 Dose: 325 mg Dantrolene Sodium (Dantrium -) 25 mg PO TID [facility] Last Admin: 12/17/16 06:14 Dose: 25 mg Docusate Sodium (Colace -) 100 mg PO DAILY [facility] Last Admin: 12/17/16 09:31 Dose: 100 mg Heparin Sodium (Porcine) (Heparin -) 5,000 unit SQ BID [facility] Last Admin: 12/17/16 09:31 Dose: 5,000 unit Levothyroxine Sodium (Synthroid -) 75 mcg PO DAILY@0700 [facility] Last Admin: 12/17/16 06:14 Dose: 75 mcg Lorazepam (Ativan -) 0.5 mg PO DAILY PRN PRN Reason: ANXIETY Last Admin: 12/16/16 02:48 Dose: 0.5 mg Metoprolol Succinate (Toprol Xl -) 25 mg PO DAILY [facility] Last Admin: 12/17/16 09:31 Dose: 25 mg Nitroglycerin (Nitrostat -) 0.4 mg SL Q5M PRN PRN Reason: FOR CHEST PAIN Last Admin: 12/14/16 09:15 Dose: 0.4 mg Ranitidine HCl (Zantac -) 150 mg PO BID [facility] Last Admin: 12/17/16 09:30 Dose: 150 mg Rosuvastatin Calcium (Crestor -) 20 mg PO HS [facility] Last Admin: 12/16/16 22:02 Dose: 20 mg Valsartan (Diovan -) 80 mg PO BID [facility] Last Admin: 12/17/16 09:31 Dose: 80 mg Laboratory Results - last 24 hr 12/17/16 06:55 Sodium 143 Potassium 4.1 Chloride 105 Carbon Dioxide 28 Anion Gap 10 BUN 15 D Creatinine 0.6 Random Glucose 103 Calcium 9.1 Creatine Kinase 72 Troponin I < 0.02 Vital Signs Temperature 98.0 F 12/17/16 06:00 Pulse Rate 55 L 12/17/16 06:00 Respiratory Rate 18 12/17/16 06:00 Blood Pressure 138/58 12/17/16 06:00 O2 Sat by Pulse Oximetry (%) 98 12/16/16 21:00 CC: no CP today either `````````````````````````` skin--good color eyes--midline heart--RR lungs--clear neuro--Rt HP; alert, coherent, ambulating ````````````````````````````` Summ > Unstable angina--complaint strongly suggestive of CAD; TNI, x 3 okay, EKG essentially okay; PLAN: await Cardio eval; may be having stress test > Htn--BP in acceptable range > Lipidemia--levels in good range > Hyothyroidism--controlled. ~~~~~~~~~~~~~~~~~~~~~~ Dr Zhang Problem List - Problems (1) Chest pain due to myocardial ischemia Code(s): I20.9 - ANGINA PECTORIS, UNSPECIFIED Qualifiers: Ischemic chest pain type: unstable angina pectoris Qualified Code(s) : I20.0 - Unstable angina (2) Hypertension Code(s): I10 - ESSENTIAL (PRIMARY) HYPERTENSION Qualifiers: Hypertension type: essential hypertension Qualified Code(s): I10 - Essential (primary) hypertension (3) Lipidemia Code(s): E78.5 - HYPERLIPIDEMIA, UNSPECIFIED Qualifiers: Hyperlipidemia type: unspecified Qualified Code(s): E78.5 - Hyperlipidemia, unspecified (4) History of CVA with residual deficit Code(s): I69.30 - UNSPECIFIED SEQUELAE OF CEREBRAL INFARCTION (5) Hypothyroid Code(s): E03.9 - HYPOTHYROIDISM, UNSPECIFIED Qualifiers: Hypothyroidism type: acquired Qualified Code(s): E03.9 - Hypothyroidism , unspecified (6) History of systemic lupus erythematosus (SLE) Code(s): Z87.39 - PERSONAL HISTORY OF DISEASES OF THE MS SYS AND CONN TISS (7) Muscle spasm Code(s): M62.838 - OTHER MUSCLE SPASM (8) GERD without esophagitis Code(s): K21.9 - GASTRO-ESOPHAGEAL REFLUX DISEASE WITHOUT ESOPHAGITIS
--- NOTE | 2016-12-17 18:48 | PN ---
Progress Note (short form) - Note Progress Note: CC: CP S: no further cp. no sob, palps, dizziness. Current Medications Aspirin (Ecotrin -) 325 mg PO DAILY [facility] Last Admin: 12/17/16 09:31 Dose: 325 mg Dantrolene Sodium (Dantrium -) 25 mg PO TID [facility] Last Admin: 12/17/16 13:41 Dose: 25 mg Docusate Sodium (Colace -) 100 mg PO DAILY [facility] Last Admin: 12/17/16 09:31 Dose: 100 mg Heparin Sodium (Porcine) (Heparin -) 5,000 unit SQ BID [facility] Last Admin: 12/17/16 09:31 Dose: 5,000 unit Levothyroxine Sodium (Synthroid -) 75 mcg PO DAILY@0700 [facility] Last Admin: 12/17/16 06:14 Dose: 75 mcg Lorazepam (Ativan -) 0.5 mg PO DAILY PRN PRN Reason: ANXIETY Last Admin: 12/16/16 02:48 Dose: 0.5 mg Metoprolol Succinate (Toprol Xl -) 25 mg PO DAILY [facility] Last Admin: 12/17/16 09:31 Dose: 25 mg Nitroglycerin (Nitrostat -) 0.4 mg SL Q5M PRN PRN Reason: FOR CHEST PAIN Last Admin: 12/14/16 09:15 Dose: 0.4 mg Ranitidine HCl (Zantac -) 150 mg PO BID [facility] Last Admin: 12/17/16 09:30 Dose: 150 mg Rosuvastatin Calcium (Crestor -) 20 mg PO HS [facility] Last Admin: 12/16/16 22:02 Dose: 20 mg Valsartan (Diovan -) 80 mg PO BID [facility] Last Admin: 12/17/16 09:31 Dose: 80 mg Vital Signs - 24 hr 12/16/16 12/16/16 12/17/16 21:00 22:00 02:57 Temperature 97.9 F 98.3 F Pulse Rate 58 L 55 L Respiratory 18 18 18 Rate Blood Pressure 127/56 142/58 O2 Sat by Pulse 98 Oximetry (%) 12/17/16 12/17/16 12/17/16 06:00 14:00 18:00 Temperature 98.0 F 98.5 F 97.7 F Pulse Rate 55 L 63 57 L Respiratory 18 18 18 Rate Blood Pressure 138/58 132/63 155/55 O2 Sat by Pulse Oximetry (%) Intake & Output 12/15/16 12/16/16 12/17/16 12/18/16 07:59 07:59 07:59 07:59 Intake Total 20 500 1500 450 Balance 20 500 1500 450 Weight 125 lb nad, calm jvd flat, neck supple ctab, nl effort rrr nl s1, s2 no mrg + bs soft nt nd ext without e/c/c aaox3 no carotid bruits no jaundice, diaphoresis. 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 Needs further CAD work up with stress testing. Currently CP free. CE's neg x 2 and EKG without ischemic changes. - NTG PRN to keep cp free. On home nifedipine, given metoprolol here. - con't medical management with ASA, statin. valsartan started here. - echo - pt with h/o lupus and pleuritic component to pain. ESR elevated, but not crp. no other clinical finding c/w pericarditis --> low suspicion. HTN - currently controlled on metoprolol and valsartan - patient's heart rate running low, will change metoprolol to coreg. (will avoid nifedipine b/c of possible interaction with dantrolene) HL - con't statin. CVA - asa, statin. no new deficits.
[2016-12-17] MEDS: ROSUVASTATIN CA 20 MG TABLET (FP) PO SCH (22:55)
[2016-12-18] MEDS: LEVOTHYROXINE NA 75 MCG TABLET (FP) PO SCH (06:37)
[2016-12-18] MEDS: DANTROLENE SODIUM 25 MG CAPSULE PO SCH ×2 (06:37→14:36)
[2016-12-18] MEDS ORDERED: ASPIRIN 325 MG ENTERIC COATED TABLET (FP) PO SCH (10:00)
[2016-12-18] MEDS ORDERED: WATER IVPB ONE (10:00)
[2016-12-18] MEDS ORDERED: CARVEDILOL 3.125 MG TABLET (FP) PO SCH (10:00)
[2016-12-18] MEDS ORDERED: DEXTROSE 5% IVPB ONE (10:00)
[2016-12-18] MEDS ORDERED: DIPYRIDAMOLE STRESS TEST IVPB ONE (10:00)
[2016-12-18] MEDS: HEPARIN NA (PORCINE) 5,000 UNITS/ML 1ML VIAL SQ SCH (14:33)
[2016-12-18] MEDS: VALSARTAN 80 MG TABLET (UD) PO SCH (14:34)
[2016-12-18] MEDS: DOCUSATE SODIUM 100 MG CAPSULE (FP) PO SCH (14:35)
[2016-12-18] MEDS: RANITIDINE HCL 150 MG TABLET (FP) PO SCH (14:39)
--- NOTE | 2016-12-18 15:37 | PN ---
Progress Note, Physician Chief Complaint: cp History of Present Illness: mild episode cp earlier--resolved on its own intense generalized CORREA earlier, now resolved no sob, palpit, syncope no new neuro deficits - Current Medication List Current Medications: Active Medications Aspirin (Ecotrin -) 81 mg PO DAILY [facility] Last Admin: 12/18/16 14:35 Dose: 81 mg Carvedilol (Coreg -) 3.125 mg PO BID [facility] Last Admin: 12/18/16 14:35 Dose: 3.125 mg Dantrolene Sodium (Dantrium -) 25 mg PO TID [facility] Last Admin: 12/18/16 14:36 Dose: 25 mg Docusate Sodium (Colace -) 100 mg PO DAILY [facility] Last Admin: 12/18/16 14:35 Dose: 100 mg Heparin Sodium (Porcine) (Heparin -) 5,000 unit SQ BID [facility] Last Admin: 12/18/16 14:33 Dose: 5,000 unit Levothyroxine Sodium (Synthroid -) 75 mcg PO DAILY@0700 [facility] Last Admin: 12/18/16 06:37 Dose: Not Given Lorazepam (Ativan -) 0.5 mg PO DAILY PRN PRN Reason: ANXIETY Last Admin: 12/16/16 02:48 Dose: 0.5 mg Nitroglycerin (Nitrostat -) 0.4 mg SL Q5M PRN PRN Reason: FOR CHEST PAIN Last Admin: 12/14/16 09:15 Dose: 0.4 mg Ranitidine HCl (Zantac -) 150 mg PO BID [facility] Last Admin: 12/18/16 14:39 Dose: 150 mg Rosuvastatin Calcium (Crestor -) 20 mg PO HS [facility] Last Admin: 12/17/16 22:55 Dose: 20 mg Valsartan (Diovan -) 80 mg PO BID [facility] Last Admin: 12/18/16 14:34 Dose: 80 mg - Objective Vital Signs: Vital Signs Temperature 98.2 F 12/18/16 08:00 Pulse Rate 60 12/18/16 08:00 Respiratory Rate 14 12/18/16 08:00 Blood Pressure 138/60 12/18/16 08:00 O2 Sat by Pulse Oximetry (%) 96 12/18/16 09:00 Constitutional: Yes: No Distress, Calm Eyes: No: Sclera Icterus HENT: No: Nasal Congestion Cardiovascular: Yes: Regular Rate and Rhythm, S1, S2, Other (PMI non diplaced). No: Gallop, Murmur, Rub Respiratory: Yes: CTA Bilaterally. No: Accessory Muscle Use, Rales, Wheezes Gastrointestinal: Yes: Normal Bowel Sounds, Soft. No: Tenderness Musculoskeletal: Yes: Other (No kyphosis) Extremities: No: Cold Edema: No Integumentary: No: Jaundice Neurological: Yes: Alert, Oriented (x3) Psychiatric: No: Agitated Labs: CBC, BMP 12/17/16 06:55 INR, PTT INR 0.93 (0.82-1.09) L 12/14/16 09:19 - ....Imaging EKG: Other (tele: NSR (HR min 50s)) Assessment/Plan MPI 12/05 (persantine): no ST changes. no ischemia. 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 - CE's neg x 2 and EKG x3 WNL--i.e. no ACS. - normal enzymes and ecg despite many hours of CP on day of admit makes unstable angina unlikely - ? vasospasm or microvasc anginal - pt with hiatal hernia and GERD--? esophageal spasm pain, hence subsided with nitro SL--possible even though no recent GERD sx's of late (cp didn't feel like prior rare GERD)....may have silent acid reflux irritating esophageal muscle. - pt with h/o lupus and pleuritic component to pain. CRP <0.3 (with ESR 38 unimpressive) makes pericarditis highly unlikely, kacy in absence of audible friction rub (none today, none documented on admit note) and no ekg changes or peric effusion on echo - carvedilol added here, tolerating - no demonstrable ischemia on nuclear stress test today and no concerning findings--pt is statistically at low risk of having obstructive CAD and low risk for MN/adverse cv events and med mgmt is appropriate - cont BB, ASA, statin as doing - add nitrates (patch) - should f/u with us in office 2-4 wks--if cp returns will discuss cath electively HTN - currently controlled on carvedilol and valsartan (the latter added here) - home nifedipine stopped b/c of possible interaction with dantrolene HL - con't statin. CVA - asa, statin. no new deficits.
--- NOTE | 2016-12-18 15:58 | PN ---
Progress Note (short form) - Note Progress Note: Current Medications Aspirin (Ecotrin -) 81 mg PO DAILY [facility] Last Admin: 12/18/16 14:35 Dose: 81 mg Carvedilol (Coreg -) 3.125 mg PO BID [facility] Last Admin: 12/18/16 14:35 Dose: 3.125 mg Dantrolene Sodium (Dantrium -) 25 mg PO TID [facility] Last Admin: 12/18/16 14:36 Dose: 25 mg Docusate Sodium (Colace -) 100 mg PO DAILY [facility] Last Admin: 12/18/16 14:35 Dose: 100 mg Heparin Sodium (Porcine) (Heparin -) 5,000 unit SQ BID [facility] Last Admin: 12/18/16 14:33 Dose: 5,000 unit Levothyroxine Sodium (Synthroid -) 75 mcg PO DAILY@0700 [facility] Last Admin: 12/18/16 06:37 Dose: Not Given Lorazepam (Ativan -) 0.5 mg PO DAILY PRN PRN Reason: ANXIETY Last Admin: 12/16/16 02:48 Dose: 0.5 mg Nitroglycerin (Nitrostat -) 0.4 mg SL Q5M PRN PRN Reason: FOR CHEST PAIN Last Admin: 12/14/16 09:15 Dose: 0.4 mg Ranitidine HCl (Zantac -) 150 mg PO BID [facility] Last Admin: 12/18/16 14:39 Dose: 150 mg Rosuvastatin Calcium (Crestor -) 20 mg PO HS [facility] Last Admin: 12/17/16 22:55 Dose: 20 mg Valsartan (Diovan -) 80 mg PO BID [facility] Last Admin: 12/18/16 14:34 Dose: 80 mg Vital Signs Temperature 98.2 F 12/18/16 08:00 Pulse Rate 60 12/18/16 08:00 Respiratory Rate 14 12/18/16 08:00 Blood Pressure 138/60 12/18/16 08:00 O2 Sat by Pulse Oximetry (%) 96 12/18/16 09:00 CC: no CP today `````````````````````````` skin--good color eyes--midline heart--RR lungs--clear neuro--Rt HP; alert, coherent, ambulating ````````````````````````````` Summ > Unstable angina--initial complaint strongly suggestive of CAD; TNI, x 3 okay, EKG essentially okay; PLAN: await final determination by Cardiology. > Htn--BP in acceptable range > Lipidemia--levels in good range > Hyothyroidism--controlled. ~~~~~~~~~~~~~~~~~~~~~~ Dr Zhang Problem List - Problems (1) Chest pain due to myocardial ischemia Code(s): I20.9 - ANGINA PECTORIS, UNSPECIFIED Qualifiers: Ischemic chest pain type: unstable angina pectoris Qualified Code(s) : I20.0 - Unstable angina (2) Hypertension Code(s): I10 - ESSENTIAL (PRIMARY) HYPERTENSION Qualifiers: Hypertension type: essential hypertension Qualified Code(s): I10 - Essential (primary) hypertension (3) Lipidemia Code(s): E78.5 - HYPERLIPIDEMIA, UNSPECIFIED Qualifiers: Hyperlipidemia type: unspecified Qualified Code(s): E78.5 - Hyperlipidemia, unspecified (4) History of CVA with residual deficit Code(s): I69.30 - UNSPECIFIED SEQUELAE OF CEREBRAL INFARCTION (5) Hypothyroid Code(s): E03.9 - HYPOTHYROIDISM, UNSPECIFIED Qualifiers: Hypothyroidism type: acquired Qualified Code(s): E03.9 - Hypothyroidism , unspecified (6) History of systemic lupus erythematosus (SLE) Code(s): Z87.39 - PERSONAL HISTORY OF DISEASES OF THE MS SYS AND CONN TISS (7) Muscle spasm Code(s): M62.838 - OTHER MUSCLE SPASM (8) GERD without esophagitis Code(s): K21.9 - GASTRO-ESOPHAGEAL REFLUX DISEASE WITHOUT ESOPHAGITIS
[2016-12-18] MEDS ORDERED: NITROGLYCERIN 0.4 MG/HOUR TD PATCH TD SCH (17:45)
[2016-12-18 18:02] VITALS: BP 141/75; PULSE 71; TEMP 98.7
--- NOTE | 2016-12-18 19:51 | DS ---
Physical Examination Vital Signs: Vital Signs Temperature 98.7 F 12/18/16 18:00 Pulse Rate 71 12/18/16 18:00 Respiratory Rate 16 12/18/16 18:00 Blood Pressure 141/75 12/18/16 18:00 O2 Sat by Pulse Oximetry (%) 96 12/18/16 09:00 Constitutional: Yes: Well Nourished, No Distress Eyes: Yes: Conjunctiva Clear Cardiovascular: Yes: Regular Rate and Rhythm Respiratory: Yes: CTA Bilaterally Labs: CBC, BMP 12/17/16 06:55 Discharge Summary Reason For Visit: CHEST PAIN Current Active Problems Chest pain due to myocardial ischemia (Acute) History of systemic lupus erythematosus (SLE) (Acute) Muscle spasm (Acute) Hypertension Lipidemia sinusitis Old CVA Residual effects CVA; hemiplegia Dyspepsia Hypothyroid 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 Had persantine stress which was negative. Deemed to be cleared for d/c by Cardiology (see his note) on BB, Nitrates, ASA. Condition: Improved - Instructions Diet, Activity, Other Instructions: low salt diet no strenuous activity Call or go to ED if chest pain recurrs without relief Referrals: Austyn Chan MD [Primary Care Provider] - Disposition: HOME - Home Medications Comprehensive Discharge Medication List: Ambulatory Orders Aspirin [ASA -] 325 mg PO DAILY 12/14/16 Dantrolene Sodium [Dantrium -] 25 mg PO BID 12/14/16 Docusate Sodium [Stool Softener] 100 mg PO DAILY 12/14/16 Levothyroxine [Synthroid -] 75 mcg PO DAILY 12/14/16 Montelukast Na [Singulair -] 10 mg PO HS 12/14/16 Carvedilol 3.125mg BID I[facility] 30mg Qd SL Ntg .4mg Q 5 min x3 Prn Omeprazole 20 mg PO DAILY 12/14/16 Rosuvastatin Calcium [Crestor] 20 mg PO HS 12/14/16 Valsartan/Hctz 160-12.5mg Qd
== END 2016-12-18 19:50 | disposition home or self-care (01) | DRG 311 ==
LOC: FER 08:58 → J4W 16:37
PROVIDERS: ADMIT Internal Medicine; ATTEND Internal Medicine
DX: I20.0 Unstable angina (principal); I69.351 Hemiplegia and hemiparesis following cerebral infarction affecting right dominant side; K55.9 Vascular disorder of intestine, unspecified; I25.9 Chronic ischemic heart disease, unspecified; I10 Essential (primary) hypertension; E78.5 Hyperlipidemia, unspecified; E03.9 Hypothyroidism, unspecified; M32.9 Systemic lupus erythematosus, unspecified; K80.80 Other cholelithiasis without obstruction; D64.9 Anemia, unspecified; F41.9 Anxiety disorder, unspecified; K21.9 Gastro-esophageal reflux disease without esophagitis; K44.9 Diaphragmatic hernia without obstruction or gangrene; J32.8 Other chronic sinusitis; Z96.653 Presence of artificial knee joint, bilateral; Z90.81 Acquired absence of spleen
CPT/HCPCS: 36415; 71010-TC; 78452-TC; 80048; 80053; 80061; 81003; 82550; 83036; 83721; 83735; 83880; 84443; 84484; 85025; 85610; 85651; 86140; 86850; 86900; 86901; 93005; 93010; 93017; 93306-TC; 99284-25; A9502; J1644

== ENCOUNTER 2018-11-06 07:24 | Emergency (ER) | payer OTHER, BC ==
[2018-11-06 07:34] VITALS: BP 148/72; PULSE 85; TEMP 97.8; BMI 24.2
--- NOTE | 2018-11-06 07:34 | PDOC ---
History of Present Illness - General Chief Complaint: Eye Problem Stated Complaint: LEFT EYE REDNESS Time Seen by Provider: 11/06/18 07:31 History Source: Patient Exam Limitations: No Limitations - History of Present Illness Initial Comments: 11/06/18 07:41 78y F hx of lupus, htn, hypothyroidism presents with L eye discharge that she noticed when she woke up. Denies any pain but feels itchy. No sypmtoms yesterday. Denies any vision changes, contact use, fever/chills, headache, neck pain, sore throat, congestion, n/v, cp, sob, ear pain, abd pain. Pt endorses mild seasonal allergies PMD: Dr. Chan Constitutional - no reported Fever, Chills, HEENT: +eye irritation/redness no reported vision changes, sore throat Respiratory: no reported cough, sob, hemoptysis Cardiac: no reported chest pain, palpitations, light headedness, leg swelling Abd/GI: no reported abd pain, nausea, vomiting, skin - no reported bruising, erythema, rash neurological: no reported headache, numbness, focal weakness, tingling, ataxia, hematologic: no reported easy bruising, easy bleeding GENERAL: The patient is awake, alert, and fully oriented, Nontoxic - in no acute distress. HEAD: Normocephalic, atraumatic. EYES: extraocular movements intact, sclera anicteric, conjunctiva clear, no discharge, no periorbital erythema ENT: Normal voice, Moist mucous membranes. NECK: Normal range of motion, supple, no lymphadapathy LUNGS: Breath sounds equal, clear to auscultation bilaterally. No wheezes, no rhonchi, no rales. HEART: Regular rate and rhythm, normal S1 and S2 without murmur, rub or gallop. ABDOMEN: Soft, nontender, normoactive bowel sounds. No guarding, no rebound. . No CVA tenderness suspect possible allergic source of irritation no signs of conjunctivitis pt does have an unexpired tube of erythromycin at home - will give her naphcon drops for itching/irrigtation and if further redness can use the erythrhomycin PMD fu return precauions were discussed Past History - Past Medical History Allergies/Adverse Reactions: Allergies Allergy/AdvReac Type Severity Reaction Status Date / Time ciprofloxacin [From Cipro] Allergy Unknown Verified 11/06/18 07:25 ciprofloxacin HCl Allergy Unknown Verified 11/06/18 07:25 [From Cipro] levofloxacin [From Levaquin] Allergy Unknown Verified 11/06/18 07:25 Quinolones Allergy Unknown Verified 11/06/18 07:25 Tetracyclines Allergy Unknown Verified 11/06/18 07:25 metronidazole AdvReac Difficulty Verified 11/06/18 07:25 Breathing PLASTICS Allergy Uncoded 11/06/18 07:25 Home Medications: Ambulatory Orders Aspirin [ASA -] 81 mg PO DAILY 12/14/16 Dantrolene Sodium [Dantrium -] 25 mg PO BID 12/14/16 Docusate Sodium [Stool Softener] 100 mg PO DAILY 12/14/16 Levothyroxine [Synthroid -] 75 mcg PO DAILY 12/14/16 Montelukast Na [Singulair -] 10 mg PO HS 12/14/16 Nifedipine [Nifedipine ER] 60 mg PO DAILY 12/14/16 Omeprazole 20 mg PO DAILY 12/14/16 Rosuvastatin Calcium [Crestor] 20 mg PO HS 12/14/16 Erythromycin 0.5% Eye Ointment [Erythromycin 0.5% Eye Ointment -] 1 applic OU QID #1 tube 03/29/18 Naphazoline HCl/Pheniramine [Naphcon-A Eye Drops] 1 - 2 drop OS QID #10 ml 11/06 Anemia: No 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 SPASTICITY.) COPD: No HTN: Yes Thyroid Disease: Yes (HYPOTHYROID) - Surgical History Abdominal Surgery: Yes (SPLENECTOMY 1963) Appendectomy: Yes Orthopedic Surgery: Yes (bilateral knee) - Suicide/Smoking/Psychosocial Hx Smoking Status: No Smoking History: Never smoked Have you smoked in the past 12 months: No Number of Cigarettes Smoked Daily: 0 Information on smoking cessation initiated: No Hx Alcohol Use: No Drug/Substance Use Hx: No Substance Use Type: None *Physical Exam - Vital Signs Last Vital Signs Temp Pulse Resp BP Pulse Ox 97.8 F 85 20 148/72 100 11/06/18 07:25 11/06/18 07:25 11/06/18 07:25 11/06/18 07:25 11/06/18 07:25 *DC/Admit/Observation/Transfer Diagnosis at time of Disposition: Irritation of left eye - Discharge Dispostion Disposition: HOME Condition at time of disposition: Improved Decision to Admit order: No - Prescriptions Prescriptions: Naphazoline HCl/Pheniramine [Naphcon-A Eye Drops] 1 - 2 drop OS QID #10 ml - Referrals Referrals: Austyn Chan MD [Staff Physician] - - Patient Instructions Printed Discharge Instructions: DI for Eye Allergic Reaction Additional Instructions: Return to the emergency department immediately with ANY new, persistent or worsening symptoms including any changes in your vision, eye pain or other concerns. Use the Naphcon eye drops as prescribed for the itching/irritation. You may use your erythromycin ointment if you see further redness/itching. You MUST call and follow up with your doctor in 2-3 days for further evaluation of your symptoms. Results were discussed with you. Please make sure your doctor reviews the results of your emergency evaluation. Print Language: SYRIAC - Post Discharge Activity
== END 2018-11-06 08:07 | disposition home or self-care (01) ==
LOC: FER 07:24
DX: H57.89 Other specified disorders of eye and adnexa (principal); I10 Essential (primary) hypertension; E03.9 Hypothyroidism, unspecified; I69.851 Hemiplegia and hemiparesis following other cerebrovascular disease affecting right dominant side; Z87.898 Personal history of other specified conditions
CPT/HCPCS: 99281-25

== ENCOUNTER 2019-12-29 13:05 | Emergency (ER) | payer OTHER, BC ==
[2019-12-29 13:16] VITALS: TEMP 97.6; BMI 27.8
[2019-12-29] MEDS ORDERED: LIDOCAINE 5% TOPICAL PATCH TP ONE (13:57)
[2019-12-29] MEDS ORDERED: LIDOCAINE 5% TOPICAL PATCH ONE (14:05)
[2019-12-29 14:52] VITALS: BP 154/75; PULSE 73
== END 2019-12-29 14:45 | disposition home or self-care (01) ==
LOC: FER 13:05
DX: S22.31XA Fracture of one rib, right side, initial encounter for closed fracture (principal); W19.XXXA Unspecified fall, initial encounter
CPT/HCPCS: 71101-TC-RT-FY; 99283-25

== ENCOUNTER 2021-05-08 16:18 | Emergency (ER) | payer OTHER, BC ==
[2021-05-08] MEDS ORDERED: DIPHTH,PERTUSS(ACELL),TET 0.5 ML DISP.SYRIN IM ONE ×2 (16:58→17:20)
[2021-05-08 17:16] VITALS: BP 172/68; PULSE 67; TEMP 98.3; BMI 24.4
== END 2021-05-08 19:58 | disposition home or self-care (01) ==
LOC: FER 16:18
PROC: 0HQ1XZZ Repair Face Skin, External Approach (ICD-10-PCS; principal; 2021-05-08)
PROC: 3E0234Z Introduction of Serum, Toxoid and Vaccine into Muscle, Percutaneous Approach (ICD-10-PCS; 2021-05-08)
DX: S01.81XA Laceration without foreign body of other part of head, initial encounter (principal); S09.90XA Unspecified injury of head, initial encounter; W01.0XXA Fall on same level from slipping, tripping and stumbling without subsequent striking against object, initial encounter
CPT/HCPCS: 12013; 70450-TC; 90471; 90715; 99284-25

== ENCOUNTER 2021-05-16 17:03 | Emergency (ER) | payer OTHER, BC ==
[2021-05-16 17:23] VITALS: BP 136/79; PULSE 71; TEMP 98.6; BMI 23.5
== END 2021-05-16 17:27 | disposition home or self-care (01) ==
LOC: FER 17:03
DX: Z48.02 Encounter for removal of sutures (principal)
CPT/HCPCS: 99281-25

== ENCOUNTER 2024-04-30 16:15 | Inpatient (IN) | payer OTHER, BC ==
[2024-04-30] MEDS ORDERED: GLUCAGON 1 MG KIT ONE ×2 (16:28→17:00)
[2024-04-30] MEDS: GLUCAGON 1 MG KIT IVPUSH ONE ×2 (16:34→17:03)
[2024-04-30 16:47] VITALS: BMI 21.2
[2024-04-30] MEDS ORDERED: ONDANSETRON 4 MG/2 ML VIAL ONE (16:48)
[2024-04-30] MEDS: ONDANSETRON 4 MG/2 ML VIAL IVPUSH ONE (16:50)
[2024-04-30 16:57] LABS: EOS % 1.7 % (0-4.5); HEMATOCRIT 29.2 % (32.4-45.2); HEMOGLOBIN 9.8 GM/dL (10.7-15.3); LYMPH % 21.9 % (8-40); MCH 32.8 pg (25.7-33.7); MCHC 33.4 g/dl (32.0-36.0); NEUT % 68.4 % (42.8-82.8); PLATELET COUNT 330 10^3/uL (134-434); RBC 2.98 M/mm3 (3.60-5.2); RDW 15.3 % (11.6-15.6)
[2024-04-30] MEDS: LACTATED RINGERS SOLUTION 1000 ML INFUS.BAG IV ONE (17:00)
[2024-04-30 17:14] LABS: CHLORIDE 112 mmol/L (98-107); POTASSIUM 3.4 mmol/L (3.5-5.1); SODIUM 143 mmol/L (136-145)
[2024-04-30 17:17] LABS: ALBUMIN 2.5 g/dl (3.4-5.0); ANION GAP 4 mmol/L (4-13); BLOOD UREA NITROGEN 25.5 mg/dL (7-18); CALCIUM 8.1 mg/dL (8.5-10.1); CO2 27 mmol/L (21-32); GLUCOSE,RANDOM 113 mg/dL (74-106); MAGNESIUM 1.8 mg/dL (1.8-2.4)
[2024-04-30 17:19] LABS: INR 0.95 (0.83-1.09); PROTHROMBIN TIME (PATIENT) 10.8 SEC (9.7-13.0)
[2024-04-30 17:20] LABS: CREATININE 0.8 mg/dL (0.55-1.3); SGOT/AST 29 U/L (15-37); SGPT/ALT 19 U/L (13-61)
[2024-04-30 17:21] LABS: BILIRUBIN,TOTAL 0.2 mg/dL (0.2-1)
[2024-04-30 17:22] LABS: ACTIVATED PTT 26.9 SECONDS (25.2-36.5)
[2024-04-30 17:23] LABS: ALK PHOS 61 U/L (45-117)
[2024-04-30] MEDS ORDERED: CALCIUM GLUC IN NACL, ISO-OSM 1 GM/50 ML BAG IVPB ONE (17:53)
[2024-04-30] MEDS: CALCIUM GLUCONATE 10% - 1,000 MG/10 ML VIAL IVPB ONE (17:54)
[2024-04-30] MEDS: GlUCAGON HUMAN RECOMBINANT 1 MG/VIAL IVPUSH ONE (18:09)
[2024-04-30 18:27] LABS: POTASSIUM 3.4 mmol/L (3.5-5.1)
[2024-04-30 18:29] LABS: CALCIUM 8.2 mg/dL (8.5-10.1)
[2024-04-30 18:30] LABS: BLOOD UREA NITROGEN 25.3 mg/dL (7-18); MAGNESIUM 1.7 mg/dL (1.8-2.4)
[2024-04-30 18:33] LABS: CREATININE 0.8 mg/dL (0.55-1.3)
[2024-04-30 18:45] LABS: URINE APPEARANCE CLEAR; URINE BILIRUBIN NEGATIVE (NEGATIVE); URINE COLOR YELLOW; URINE GLUCOSE (UA) NEGATIVE (NEGATIVE); URINE KETONE NEGATIVE (NEGATIVE); URINE LEUK ESTERASE NEGATIVE (NEGATIVE); URINE NITRITE NEGATIVE (NEGATIVE); URINE PROTEIN TRACE (NEGATIVE); URINE UROBILINOGEN 0.2 mg/dL (0.2-1.0)
[2024-04-30] MEDS: MAGNESIUM SULFATE IN WATER 2 GM/50 ML IVPB IVPB ONE (22:17)
[2024-04-30] MEDS: POTASSIUM CHLORIDE TABS 20 MEQ TABLET.ER (FP) PO ONE ×2 (22:17)
[2024-04-30] MEDS: ROSUVASTATIN CA 20 MG TABLET PO SCH (23:55)
[2024-04-30] MEDS: SODIUM CHLORIDE 1,000 ML IV SCH (23:57)
[2024-05-01] MEDS: DANTROLENE SODIUM 25 MG CAPSULE PO SCH (00:30)
[2024-05-01] MEDS ORDERED: SODIUM CHLORIDE 1,000 ML IV SCH (05:07)
[2024-05-01] MEDS: hydrALAZINE HCL 20 MG/ML VIAL IVPUSH PRN (06:21)
[2024-05-01] MEDS: PANTOPRAZOLE 20 MG TABLET PO SCH (06:22)
[2024-05-01] MEDS: LEVOTHYROXINE NA 75 MCG TABLET (FP) PO SCH (06:22)
[2024-05-01 07:37] LABS: HEMATOCRIT 32.6 % (32.4-45.2); HEMOGLOBIN 10.8 GM/dL (10.7-15.3); MCH 32.8 pg (25.7-33.7); MCHC 33.1 g/dl (32.0-36.0); MEAN CELL VOLUME 99.2 fl (80-96); MEAN PLT VOLUME 8.8 fl (7.5-11.1); PLATELET COUNT 357 10^3/uL (134-434); RBC 3.29 M/mm3 (3.60-5.2); RDW 15.2 % (11.6-15.6); WHITE BLOOD COUNT 8.2 K/mm3 (4.0-10.0)
[2024-05-01 07:39] LABS: POTASSIUM 4.7 mmol/L (3.5-5.1)
[2024-05-01 07:43] LABS: CALCIUM 9.1 mg/dL (8.5-10.1)
[2024-05-01 07:44] LABS: ALBUMIN 2.8 g/dl (3.4-5.0); BLOOD UREA NITROGEN 19.8 mg/dL (7-18); MAGNESIUM 1.9 mg/dL (1.8-2.4)
[2024-05-01 07:47] LABS: CREATININE 0.7 mg/dL (0.55-1.3); PHOSPHOROUS 3.1 mg/dL (2.5-4.9)
[2024-05-01 07:48] LABS: BILIRUBIN,TOTAL 0.3 mg/dL (0.2-1); TOT PROT 6.8 g/dl (6.4-8.2)
[2024-05-01] MEDS: NIFEdipine E.R 60 MG TABLET PO SCH (09:03)
[2024-05-01] MEDS: ASPIRIN 81 MG CHEWABLE TABLETS PO SCH (09:03)
[2024-05-01] MEDS: VALSARTAN 160 MG TABLET PO SCH (09:03)
[2024-05-01] MEDS ORDERED: PATIENT'S OWN MEDICATION (NON-FORMULARY) (Memantine Hcl/Donepezil Hcl [Namzaric 28 Mg-10 M PO SCH (10:00)
[2024-05-01] MEDS ORDERED: PATIENT'S OWN MEDICATION (NON-FORMULARY) (Vibegron [Gemtesa] 75 MG Tablet) PO SCH (10:00)
[2024-05-01] MEDS: hydrALAZINE HCL 25 MG TABLET (FP) PO ONE (12:21)
[2024-05-01] MEDS: HEPARIN NA (PORCINE) 5,000 UNITS/ML 1ML VIAL SQ SCH (21:47)
[2024-05-01] MEDS: MONTELUKAST NA 10 MG TABLET PO SCH (21:47)
[2024-05-02 08:00] LABS: HEMATOCRIT 36.3 % (32.4-45.2); HEMOGLOBIN 12.1 GM/dL (10.7-15.3); MCH 32.7 pg (25.7-33.7); MCHC 33.4 g/dl (32.0-36.0); MEAN CELL VOLUME 97.8 fl (80-96); MEAN PLT VOLUME 8.9 fl (7.5-11.1); PLATELET COUNT 387 10^3/uL (134-434); RBC 3.71 M/mm3 (3.60-5.2); RDW 15.4 % (11.6-15.6); WHITE BLOOD COUNT 8.2 K/mm3 (4.0-10.0)
[2024-05-02 08:29] LABS: ALBUMIN 2.9 g/dl (3.4-5.0); MAGNESIUM 1.9 mg/dL (1.8-2.4)
[2024-05-02 08:32] LABS: CREATININE 0.7 mg/dL (0.55-1.3); PHOSPHOROUS 2.7 mg/dL (2.5-4.9)
[2024-05-02 08:33] LABS: BILIRUBIN,TOTAL 0.3 mg/dL (0.2-1)
[2024-05-02] MEDS: VALSARTAN 160 MG TABLET PO SCH (09:40)
[2024-05-02] MEDS: NIFEdipine E.R 60 MG TABLET PO SCH (09:40)
[2024-05-02] MEDS: HYDROCHLOROTHIAZIDE 12.5 MG CAPSULE (FP) PO SCH (11:44)
[2024-05-03 09:20] VITALS: BP 148/87; RESP 16
[2024-05-03 09:23] VITALS: PULSE 70; TEMP 97.5
== END 2024-05-03 15:36 | disposition home or self-care (01) | DRG 312 ==
LOC: JER 16:15 → JERBED 19:28 → J4S 20:17 → OBSVTOIN 05-01 08:30
PROVIDERS: ADMIT Internal Medicine; ATTEND Internal Medicine
DX: I95.2 Hypotension due to drugs (principal); I69.351 Hemiplegia and hemiparesis following cerebral infarction affecting right dominant side; R00.1 Bradycardia, unspecified; F03.90 Unspecified dementia, unspecified severity, without behavioral disturbance, psychotic disturbance, mood disturbance, and anxiety; T44.7X5A Adverse effect of beta-adrenoreceptor antagonists, initial encounter; Y92.89 Other specified places as the place of occurrence of the external cause; E78.5 Hyperlipidemia, unspecified
CPT/HCPCS: 36415; 71045-TC-FY; 80048; 80053; 81003; 82550; 83735; 84100; 84439; 84443; 84484; 85025; 85027; 85610; 85730; 86038; 86160; 86162; 87086; 93005; 93010; 93306-TC; 97116-GP; 97161-GP; 99285-25; G0378; J1644